=== PATIENT | male | born 1960 | race African-American/Black ===

== ENCOUNTER 2022-07-12 11:07 | Inpatient (IN) | payer SELFPAY ==
[2022-07-12 14:15] LABS: BASO % 0.5 % (0-2.0); EOS % 0.8 % (0-4.5); HEMATOCRIT 47.2 % (35.4-49); HEMOGLOBIN 16.1 GM/dL (11.7-16.9); LYMPH % 36.5 % (8-40); MCH 29.6 pg (25.7-33.7); MCHC 34.1 g/dl (32.0-35.9); MEAN CELL VOLUME 86.9 fl (80-96); MEAN PLT VOLUME 7.6 fl (7.5-11.1); MONO % 7.9 % (3.8-10.2); NEUT % 54.3 % (42.8-82.8); PLATELET COUNT 343 10^3/uL (134-434); RBC 5.43 M/mm3 (4.00-5.60); RDW 13.8 % (11.9-15.9); WHITE BLOOD COUNT 8.8 K/mm3 (4.0-10.0)
[2022-07-12 14:43] LABS: POTASSIUM 4.8 mmol/L (3.5-5.1)
[2022-07-12 14:45] LABS: CALCIUM 9.8 mg/dL (8.5-10.1)
[2022-07-12 14:46] LABS: ALBUMIN 4.1 g/dl (3.4-5.0); BLOOD UREA NITROGEN 12.2 mg/dL (7-18)
[2022-07-12 14:49] LABS: CREATININE 1.2 mg/dL (0.55-1.3)
[2022-07-12 14:50] LABS: TOT PROT 8.1 g/dl (6.4-8.2)
[2022-07-12 14:54] LABS: N-TERMINAL BNP 11.8 pg/ml (5-125)
[2022-07-12 17:19] LABS: EPI CELLS 4 /uL (0-25.1); HYALINE CASTS 1 /uL (0-3.1); PH,URINE 5.5 (5.0-8.0); URINE APPEARANCE CLEAR; URINE BACTERIA >9,000 /uL (0-1359); URINE BILIRUBIN NEGATIVE (NEGATIVE); URINE COLOR YELLOW; URINE GLUCOSE (UA) NEGATIVE (NEGATIVE); URINE KETONE NEGATIVE (NEGATIVE); URINE LEUK ESTERASE 1+ (NEGATIVE); URINE NITRITE POSITIVE (NEGATIVE); URINE PROTEIN TRACE (NEGATIVE); URINE RBC 5 /uL (0-23.9); URINE WBC 61 /uL (0-25.8)
[2022-07-12] MEDS ORDERED: ATORVASTATIN CA 80 MG TABLET (FP) PO ONE (17:41)
[2022-07-12] MEDS ORDERED: ASPIRIN 325 MG TABLET PO ONE (17:41)
[2022-07-12] MEDS ORDERED: CEFTRIAXONE 1,000 MG in DEXTROSE 5%-WATER - 50 ML IVPB ONE (17:44)
[2022-07-12] MEDS ORDERED: ATORVASTATIN CA 80 MG TABLET (FP) ONE (18:20)
[2022-07-12] MEDS ORDERED: ASPIRIN 325 MG TABLET ONE (18:20)
[2022-07-12] MEDS ORDERED: CEFTRIAXONE 1 GM/50 ML BAG ONE (18:20)
[2022-07-12] MEDS: amLODIPine BESYLATE 5 MG TABLET (FP) PO SCH (21:40)
[2022-07-12] MEDS: CLOPIDOGREL BISULFATE 75 MG TABLET (FP) PO SCH (21:40)
[2022-07-12] MEDS: ATORVASTATIN CA 40 MG TABLET (FP) PO SCH (21:48)
[2022-07-12 23:51] VITALS: BMI 31.5
[2022-07-13] MEDS ORDERED: SODIUM CHLORIDE 0.45% 1,000 ML IV SCH (00:15)
[2022-07-13 07:58] LABS: BASO % 0.4 % (0-2.0); EOS % 1.7 % (0-4.5); HEMATOCRIT 43.2 % (35.4-49); HEMOGLOBIN 15.1 GM/dL (11.7-16.9); LYMPH % 41.4 % (8-40); MCH 30.3 pg (25.7-33.7); MCHC 34.9 g/dl (32.0-35.9); MEAN CELL VOLUME 86.8 fl (80-96); MONO % 8.2 % (3.8-10.2); NEUT % 48.3 % (42.8-82.8); PLATELET COUNT 302 10^3/uL (134-434); RBC 4.97 M/mm3 (4.00-5.60); RDW 13.4 % (11.9-15.9); WHITE BLOOD COUNT 6.8 K/mm3 (4.0-10.0)
[2022-07-13 08:53] LABS: POTASSIUM 4.5 mmol/L (3.5-5.1)
[2022-07-13 08:59] LABS: CALCIUM 9.4 mg/dL (8.5-10.1)
[2022-07-13 09:01] LABS: ALBUMIN 3.6 g/dl (3.4-5.0); MAGNESIUM 2.2 mg/dL (1.8-2.4)
[2022-07-13 09:02] LABS: TOT PROT 7.1 g/dl (6.4-8.2)
[2022-07-13 09:03] LABS: BLOOD UREA NITROGEN 13.4 mg/dL (7-18); PHOSPHOROUS 3.8 mg/dL (2.5-4.9)
[2022-07-13] MEDS: ENOXAPARIN NA (PORCINE) 40 MG/0.4 ML DISP.SYRIN SQ SCH (09:33)
[2022-07-13] MEDS: amLODIPine BESYLATE 5 MG TABLET (FP) PO SCH (09:33)
[2022-07-13] MEDS: CLOPIDOGREL BISULFATE 75 MG TABLET (FP) PO SCH (09:33)
[2022-07-13] MEDS: ASPIRIN 81 MG CHEWABLE TABLETS PO SCH (09:34)
[2022-07-13] MEDS: LIDOCAINE 5% TOPICAL PATCH TP SCH (09:35)
[2022-07-13] MEDS ORDERED: FLU VACC QS2022-23(6MOS UP)/PF 60 MCG/0.5 ML SYRINGE IM ONE (10:00)
[2022-07-13] MEDS: ATORVASTATIN CA 40 MG TABLET (FP) PO SCH (21:16)
[2022-07-13] MEDS ORDERED: ACETAMINOPHEN 500 MG TABLET (FP) PO ONE (21:25)
[2022-07-13] MEDS ORDERED: LIDOCAINE PATCH REMOVAL MC SCH (22:00)
[2022-07-14 06:05] VITALS: RESP 20
[2022-07-14 08:25] LABS: HEMOGLOBIN 14.7 GM/dL (11.7-16.9); MCH 30.2 pg (25.7-33.7); MCHC 34.9 g/dl (32.0-35.9); MEAN CELL VOLUME 86.5 fl (80-96); MEAN PLT VOLUME 7.7 fl (7.5-11.1); PLATELET COUNT 296 10^3/uL (134-434); RBC 4.85 M/mm3 (4.00-5.60); RDW 13.3 % (11.9-15.9); WHITE BLOOD COUNT 6.2 K/mm3 (4.0-10.0)
[2022-07-14 08:44] LABS: CALCIUM 9.3 mg/dL (8.5-10.1)
[2022-07-14 08:45] LABS: BLOOD UREA NITROGEN 12.5 mg/dL (7-18); MAGNESIUM 2.1 mg/dL (1.8-2.4)
[2022-07-14 08:48] LABS: PHOSPHOROUS 3.4 mg/dL (2.5-4.9)
[2022-07-14] MEDS ORDERED: LISINOPRIL 20 MG TABLET PO SCH (10:00)
[2022-07-14] MEDS ORDERED: LISINOPRIL 5 MG TABLET PO SCH (10:00)
[2022-07-14] MEDS: ASPIRIN 81 MG CHEWABLE TABLETS PO SCH (10:23)
[2022-07-14] MEDS: ENOXAPARIN NA (PORCINE) 40 MG/0.4 ML DISP.SYRIN SQ SCH (10:23)
[2022-07-14] MEDS: CLOPIDOGREL BISULFATE 75 MG TABLET (FP) PO SCH (10:23)
[2022-07-14] MEDS: LIDOCAINE 5% TOPICAL PATCH TP SCH (10:23)
[2022-07-14 18:13] VITALS: BP 112/76; PULSE 77; TEMP 99.1
== END 2022-07-14 19:31 | disposition home or self-care (01) | DRG 45 ==
LOC: JER 11:07 → JERBED 17:31 → J4W 20:02
PROVIDERS: ADMIT Internal Medicine; ATTEND Internal Medicine
DX: I63.542 Cerebral infarction due to unspecified occlusion or stenosis of left cerebellar artery (principal); I10 Essential (primary) hypertension; I65.02 Occlusion and stenosis of left vertebral artery
CPT/HCPCS: 0241U-QW; 36415; 70450-TC; 70496-TC; 70498-TC; 70544-TC; 70547-TC; 70551-TC; 71046-TC-FY; 80048; 80053; 80061; 81003; 83036; 83735; 83880; 84100; 84439; 84443; 84484; 85025; 85027; 87086; 87186; 93005; 93010; 93306-TC; 93880-TC; 97116-GP; 97162-GP; 99285-25; G0008; Q2036; Q9967